=== PATIENT | male | born 1970 ===

== ENCOUNTER 2017-04-08 18:57 | Emergency (ER) | payer MEDICAID, OTHER ==
[2017-04-08 19:05] VITALS: RESP 18; TEMP 97.6; O2SAT 99
[2017-04-08] MEDS ORDERED: Sodium Chloride 0.9% 1,000 ML IV STA (19:33)
[2017-04-08] MEDS ORDERED: Bacitracin 500 Units/gm Oint Foilpak UD TOP ONE (19:34)
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
[2017-04-08 19:57] LABS: BASO % 0.5 % (0.0-2.0); EOS # 0.1 K/uL (0.0-0.7); EOS % 0.7 % (0.0-4.0); HEMOGLOBIN 13.7 g/dL (12.0-18.0); LYMPH # 3.1 K/uL (1.0-4.3); LYMPH % 35.5 % (20.0-40.0); MEAN CELL VOLUME 84.6 fl (80.0-94.0); MEAN CORPUSCULAR HEMOGLOBIN 27.7 pg (27.0-31.0); MEAN CORPUSCULAR HGB CONC 32.8 g/dL (33.0-37.0); MEAN PLATELET VOLUME 8.1 fl (7.2-11.7); MONO # 0.6 K/uL (0.0-0.8); MONO % 6.7 % (0.0-10.0); NEUT % 56.6 % (50.0-75.0); RBC 4.94 Mil/uL (4.40-5.90); RED CELL DISTRIBUTION WIDTH 12.6 % (11.5-14.5); WHITE BLOOD COUNT 8.8 K/uL (4.8-10.8)
[2017-04-08] MEDS ORDERED: Fluorescein 1 mg Ophthalmic Strip ONE (19:58)
[2017-04-08] MEDS ORDERED: Tetracaine 0.5% Ophth 2 ML BOTTLE ONE (19:58)
[2017-04-08 20:04] LABS: ALB/GLOB RATIO 1.2 (1.0-2.1); ALBUMIN 3.9 g/dL (3.5-5.0); ALT/SGPT 46 U/L (21-72); AST/SGOT 22 U/L (17-59); BLOOD UREA NITROGEN 21 mg/dl (9-20); CALCIUM 9.1 mg/dL (8.4-10.2); GFR AFRICAN-AMERICAN > 60; GFR NON-AFRICAN AMERICAN > 60; MAGNESIUM 1.8 MG/DL (1.6-2.3)
[2017-04-08 21:08] VITALS: BP 133/85; PULSE 82
== END 2017-04-08 21:08 | disposition home or self-care (01) ==
LOC: H.ER 18:57
DX: T20.00XA Burn of unspecified degree of head, face, and neck, unspecified site, initial encounter (principal); X11.8XXA Contact with other hot tap-water, initial encounter; Y92.89 Other specified places as the place of occurrence of the external cause; E11.65 Type 2 diabetes mellitus with hyperglycemia; Z79.84 Long term (current) use of oral hypoglycemic drugs; I10 Essential (primary) hypertension
CPT/HCPCS: 80053; 82948; 83735; 84100; 85025; 90471; 90715; 96360; 99283; J7040